=== PATIENT | female | born 1995 | race African-American/Black ===

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

== ENCOUNTER 2021-05-24 20:11 | Emergency (ER) | payer MEDICAID ==
[~2021-05-24] VITALS: Ht 165.1 cm; Wt 59.0 kg
[2021-05-25] MEDS ORDERED: AMOXICILLIN/POTASSIUM CLAVULANATE 875/125MG TAB PO ONE
[2021-05-25] MEDS ORDERED: TETANUS AND DIPHTHERIA TOX/PF 0.5ML SYR (ADULT) IM ONE
[2021-05-25] MEDS ORDERED: AMOX-424 MT (00:42)
[2021-05-25] MEDS ORDERED: TETANUS, DIPHTHERIA, PERTUSSIS VAC/PF 0.5ML (>10YR OLD) IM ONE (01:30)
[2021-05-25 02:30] VITALS: BP 126/75
== END 2021-05-25 02:39 | disposition home or self-care (01) ==
LOC: ER 20:11
DX: S01.85XA Open bite of other part of head, initial encounter (principal); W50.3XXA Accidental bite by another person, initial encounter; Y93.89 Activity, other specified; Y92.89 Other specified places as the place of occurrence of the external cause; Y99.8 Other external cause status; Z98.890 Other specified postprocedural states; Z91.010 Allergy to peanuts
CPT/HCPCS: 90714; 90715; 99283